=== PATIENT | male | born 1975 | race Caucasian/White ===

== ENCOUNTER 2020-09-30 11:50 | Outpatient (REF) | payer BC, SELFPAY ==
[2020-09-30 13:34] LABS: COVID-19 Test Negative (Negative)
== END 2020-09-30 11:51 | disposition home or self-care (01) ==
LOC: HO.LAB 11:50
PROVIDERS: Visit Provider Internal Medicine
DX: Z20.828 Contact with and (suspected) exposure to other viral communicable diseases (principal)
CPT/HCPCS: 87635; C9803; U0003

== ENCOUNTER → 2023-01-04 12:52 | Outpatient (BNVA) | payer OTHER, SELFPAY | PROVIDERS: PCP Internal Medicine; Visit Provider Physician Assistant | DX: M70.31 Other bursitis of elbow, right elbow (principal); L03.113 Cellulitis of right upper limb | CPT/HCPCS: 99203 ==